=== PATIENT | female | born 1990 | race Hispanic/Latino ===

== ENCOUNTER 2022-10-25 16:55 | Emergency (ER) | payer OTHER, SELFPAY ==
--- OUTSIDE RECORDS SUMMARY | 2022-10-25 16:59 | XMS REPORT | Continuity of Care Document ---
:1990 Author Organization [facility] t Address [address] [place] [address] Care Team Providers Name Role Phone PCP, PATIENT DOES NOT HAVE A Primary Care Physician Unavaila bandar RIVERA Attending Clinician Unavailable Galdino Nguyen Attending Clinician GALDINO CABRERA Attending Clinician Unavailable Antonietta Attending Clinician Unavailable Stephanie Cisneros Attending Clinician MIGUEL Admitting Clinician Unavailable Antoneitta Admitting Clinician Unavailable Payers Payer Name Policy Type Policy Number Effective Date Expiration Date S gerald [place] WOMEN'S [id number] HEALTH PROGRAM (MEDICAID) Problems Condition Condition Condition Status Onset Resolution Last Treating Co mments Source Name Details Category Date Date Treatment Clinician Date No known No known Disease Unive rs active active ity of problems problems [facility] Allergies, Adverse Reactions, Alerts Allergy Allergy Status Severity Reaction(s) Onset Inactive Treating Comm ents Source Name Type Date Date Clinician Iodine Propensi Active Hives Univers ty to 6-07 ity of adverse 00:00: [place] reaction 00 Medical s Branch Sulfa Propensi Active Unknown - Unive rs (Sulfona ty to See comments 6-07 it y of mide adverse 00:00: [place] Antibiot reaction 00 Medica l ics) s Branch SULFA Drug Active Unknown-Cmnt Univ ers (SULFONA Class 6-07 ity of MIDE 00:00: [place] ANTIBIOT 00 Medical ICS) Branch IODINE DRUG Active Hives Univers INGREDI 6-07 ity of 00:00: [place] 00 Medical Branch NO KNOWN Drug Active Univers ALLERGIE Class ity of S [facility] SULFA Allergy Active [place] (SULFONA to da MIDE [facility] Medical ANTIBIOT e Group ICS) Social History Social Habit Start Date Stop Date Quantity Comments Source Exposure to Not sure [facility] SARS-CoV-2 (event) Medica l Branch Tobacco use and 2021-10-10 2021-10-10 Never used [facility] exposure 00:00:00 00:00:00 [facility] Sex Assigned At [birth year] [facility] 00:00:00 00:00:00 Medical Branch Smoking Status Start Date Stop Date Source Current Every Day Smoker [facility] Never smoker [facility] Unknown if ever smoked [facility] Medications Ordered Filled Start Stop Current Ordering Indication Dosage Frequency Signature Comments Components Source Medication Medication Date Date Medication? Clinician (SIG) Name Name fluconazole 2020-11 Yes [id number] Take 1 Univers (DIFLUCAN) 1-20 pill now ity o f 150 mg 00:00: and repeat [place] tablet 00 in 3 days Medical if needed Branch amoxicillin 2020-11- No [id number] 875mg Take 1 Univers 875 mg 1-20 10-21 tablet by ity of tablet 00:00: 05:59 mouth 2 [place] 00 :00 (two) Medical times Branch daily for 10 days. Flagyl 500 Flagyl 500 No 1 BID Flagyl 500 [place] mg tablet mg tablet mg tablet da Take 1 Take 1 Take 1 Medical tablet tablet tablet Group twice a day twice a day twice a by oral by oral day by route for 5 route for 5 oral route days. days. for 5 days. ibuprofen ibuprofen No 1 Q6H ibuprofen [place] 800 mg 800 mg 800 mg da tablet Take tablet Take tablet Medical 1 tablet 1 tablet Take 1 Group every 6 every 6 tablet hours by hours by every 6 oral route oral route hours by as needed. as needed. oral route as needed. Diflucan Diflucan No 1 Diflucan [place] 150 mg 150 mg 150 mg da tablet Take tablet Take tablet Medical 1 tablet by 1 tablet by Take 1 Group oral route. oral route. tablet by oral route. No known No Univers medications ity of [place] [facility] Vital Signs Vital Name Observation Time Observation Value Comments Source Systolic blood 2021-10-10 15:20:00 102 mm[Hg] Univer sity of pressure [facility] Branch Diastolic blood 2021-10-10 15:20:00 69 mm[Hg] Unive rsity of pressure [facility] Heart rate 2021-10-10 15:20:00 85 /min Universi ty of [facility] Body temperature 2021-10-10 15:20:00 36.94 Ana Univ ersity of [facility] Body height 2021-10-10 15:20:00 152.4 cm [facility]i ty [facility] Body weight 2021-10-10 15:20:00 56.898 kg Universi ty of [facility] Branch BMI 2021-10-10 15:20:00 24.50 kg/m2 Universi ty [facility] Oxygen saturation in 2021-10-10 15:20:00 100 /min University of Arterial blood by [place] [employer] [facility] Pulse oximetry Branch BP Diastolic 2021-06-02 00:00:00 76 mm[Hg] [facility] Height 2021-06-02 00:00:00 60 [in_i] [facility] BP Systolic 2021-06-02 00:00:00 116 mm[Hg] [facility] Systolic blood 2021-04-28 03:00:00 111 mm[Hg] Univer sity of [facility] Diastolic blood 2021-04-28 03:00:00 71 mm[Hg] Unive rsity of [facility] Heart rate 2021-04-28 03:00:00 55 /min [facility]i [facility] Respiratory rate 2021-04-28 03:00:00 18 /min Univ ersity of [facility] Branch Oxygen saturation in 2021-04-28 03:00:00 98 /min University of Arterial blood by [place] [employer] ansley Pulse oximetry Branch Body temperature 2021-04-28 01:51:00 37.17 Ana Univ [facility] Body height 2021-04-28 01:51:00 152.4 cm [facility] Body weight 2021-04-28 01:51:00 56.7 kg [facility] BMI 2021-04-28 01:51:00 24.41 kg/m2 [facility] Procedures Procedure Date / Time Performed Performing Clinician Sourthiago e POCT TEST 2021-04-28 03:16:00 Stephanie Quesada [facility] URINALYSIS 2021-04-28 02:48:00 Stephanie Quesada [place] o f [facility] NOTICE OF PRIVACY 2021-04-28 01:44:38 Doctor Unassigned, No Univ [facility] PRACTICES Name Medical Center Clinic CONSENT/REFUSAL FOR 2021-04-28 01:44:14 [facility], No [facility] AND Name [facility] TREATMENT Plan of Care Planned Activity Planned Date Details Comments Source Diagnostic Test 2021-06-02 wet mount, vaginal [place] [facility] Pending 00:00:00 [code = wet [place], Group vaginal] Diagnostic Test 2021-06-02 urinalysis, [place] [address] dical Pending 00:00:00 dipstick [code = Group urinalysis, dipstick] Diagnostic Test 2021-06-02 pap, LB + HR HPV [place] [facility] Pending 00:00:00 [code = pap, LB + Group HR HPV] Diagnostic Test 2021-06-02 CT + NG DNA, PCR, [place] [facility] Pending 00:00:00 cervical [code = Group CT + NG DNA, PCR, cervical] Encounters Start End Encounter Admission Attending Care Care Encounter Source Date/Time Date/Time Type Type Clinicians Facility Department ID 2022-06-04 2022-06-04 Outpatient VICKI_BECCA WHALEN [facility] 908 [place] 03:36:00 03:36:00 HN [id number] [facility] 2021-10-10 2021-10-10 [facility] [id number] Univers 09:14:52 09:34:52 Care [facility] [id number] it y of YOLO [id number] Fan as MUNDO?BLEA [id number] Me dical [address] MEDICAL OFFICE BUILDING 2021-10-10 2021-10-10 Outpatient R BRETT [facility] [id number] Univers 09:20:00 09:20:00 [facility] 2021-06-02 2021-06-02 Viktor G_Pappas [facility] [place] - [id number] [place] 00:00:00 00:00:00 Discovery Pablo 0713 beckie MD: Jamilah [facility] - [address], [place] [address] , Ph. [phone] 2021-05-14 2021-05-14 [facility] [id number] [place] 10:40:00 10:40:00 0624 [facility] 2021-05-11 2021-05-11 Outpatient G_Pappas [facility] [id number] [place] 09:39:00 09:39:00 0621 [facility] 2021-04-27 2021-04-27 Emergency [facility] [id number] Univers 20:52:00 22:33:00 Stephanie Maki [id number] i ty [facility] [id number] [facility] [id number] [facility] 084 Branch 2021-04-27 2021-04-27 Emergency X [facility] ERT [id number] Univers 20:42:00 20:42:00 [facility] [place] Results Test Description Test Time Test Comments Results Result Comments Source Urinalysis macro (dipstick) panel - Urine 2021-06-02 08:39:2 4 Test Item Value Reference Range Interpretation Comme nts Leukocytes (test code = Leukocytes) Negative Nitrite (test code = Nitrite) negative Urobilinogen (test code = Urobilinogen) .2 Protein (test code = Protein) Negative pH (test code = pH) 6.0 Blood (test code = Blood) Negative Specific Purlear (test code = Specific Purlear) 1.015 Ketone (test code = Ketone) Negative Bilirubin (test code = Bilirubin) Negative Glucose (test code = Glucose) Negative Appearance (test code = Appearance) Clear Color (test code = Color) [id number] 03:16:00 Test Item Value Reference Range Interpretation Comments POCT PREG (test code = 1605) neg On board controls acceptable with yes C Line (test code = 3574) POCT PREG LOT # (test code = 3575) [id number] POCT PREG TEST DATE (test 10/20/2022 code = 3576) Lab Interpretation (test code = Normal 40056-4) [facility] 03:10:47 Test Item Value Reference Range Interpretation Comments APPEARANCE (test code = Clear Clear [id number]) COLOR (test code = Yellow Yellow 6630252905) PH (test code = 4.8-8.0 8551553395) SP GRAVITY (test code = 1.003-1.030 1071296323) GLU U QUAL (test code = Normal Normal 3530551764) BLOOD (test code = Negative Negative 5177951033) KETONES (test code = 5 mg/dL Negative A 3382137429) PROTEIN (test code = Negative Negative 2887-8) UROBILIN (test code = 2.0 mg/dL Normal A 4231881093) BILIRUBIN (test code = Negative Negative 8348029918) NITRITE (test code = Negative Negative 0348052215) LEUK RICO (test code = Negative Negative 5983339364) RBC/HPF (test code = See_Comment [Autom ated message] 3549727713) The system [employer] generated this result transmit mainor reference range : 0 - 3 HPF. The refe rence range was not u sed to interpret th is result as normal/abnormal . WBC/HPF (test code = See_Comment [Autom ated message] 4679957250) The system [employer] generated this result transmit mainor reference range : 0 - 5 HPF. The refe rence range was not u sed to interpret th is result as normal/abnormal . BACTERIA (test code = Negative Negative 1709398732) MUCOUS (test code = Slight Negative LPF A 4240720730) SQ EPITH (test code = HPF 2054248998) Lab Interpretation (test Abnormal code = 26928-6) [facility]
[2022-10-25] MEDS ORDERED: IBUPROFEN 400 MG TAB ONE (17:28)
[2022-10-25] MEDS ORDERED: IBUPROFEN 200 MG TAB PO ONE (17:29)
[2022-10-25 17:33] LABS: Urine Blood Negative (Negative); Urine Glucose Negative (Negative); Urine Protein Negative (Negative); Urine Specific Gravity >=1.030 (1.005-1.030)
[2022-10-25 17:36] LABS: Urine Specific Gravity/Preg >1.030 (1.005-1.030)
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
[2022-10-25 19:48] VITALS: BP 124/62; TEMP 97.7; O2SAT 100
== END 2022-10-25 18:19 | disposition home or self-care (01) ==
LOC: ER 16:55
DX: R29.91 Unspecified symptoms and signs involving the musculoskeletal system (principal); R07.89 Other chest pain; Z88.2 Allergy status to sulfonamides; Z91.041 Radiographic dye allergy status
CPT/HCPCS: 81003; 81025; 99283